=== PATIENT | female | born 1995 | race American Indian/Alaskan Native ===

== ENCOUNTER 2017-04-02 19:58 | Emergency (ER) | payer MEDICAID ==
[2017-04-02 20:27] VITALS: BP 118/69
[2017-04-02 21:00] LABS: Hematocrit 33.4 % (30.3-42.9); Mean Corpuscular HGB Conc 33 % (30-34); Mean Corpuscular Hemoglobin 29 pg (28-32); Mean Corpuscular Volume 87 fl (79-97); Platelet Count 241 K/mm3 (140-440); Red Blood Count 3.85 M/mm3 (3.65-5.03); Red Cell Distribution Width 14.2 % (13.2-15.2); White Blood Count 13.9 K/mm3 (4.5-11.0)
[2017-04-02 21:08] LABS: Anion Gap 18 mmol/L; Blood Urea Nitrogen 6 mg/dL (7-17); Calcium 9.1 mg/dL (8.4-10.2); Carbon Dioxide 23 mmol/L (22-30); Chloride 100.9 mmol/L (98-107); Glucose 76 mg/dL (65-100); Potassium 3.9 mmol/L (3.6-5.0); Sodium 138 mmol/L (137-145)
[2017-04-02 21:22] LABS: Bilirubin,Urine NEG (Negative); Blood,Urine NEG (Negative); Ketones,Urine NEG (Negative); Leukocyte Esterase,Urine TR (Negative); Mucus,Urine FEW /HPF; Nitrite,Urine NEG (Negative); Protein,Urine <15 mg/dL mg/dL (Negative); Urobilinogen,Urine < 2.0 mg/dL (<2.0); WBC,Urine < 1.0 /HPF (0.0-6.0)
--- NOTE | 2017-04-02 21:30 | Ultrasound Report ---
FINAL REPORT EXAM: US OB \T\gt; = 14 WEEKS FETUS HISTORY: 19 WK PREG/CRAMPING/NO MOVEMENT OF FETUS IN 4DAY TECHNIQUE: Real-time sonography was performed of the gravid uterus and images are submitted for interpretation. PRIORS: None. FINDINGS: There is a single fetus in the uterus in a cephalic presentation. Detailed anatomic survey was not performed. The placenta is anterior and the os is clear. There is a normal amount of amniotic fluid. The cervix is long and closed measuring 3.7 cm. The heart is beating at a rate of 161 beats per minute. Biometric measurements give an estimated gestational age of 18 weeks 6 days. The maternal adnexa were scanned. There is no free pelvic fluid. The ovaries were not seen. IMPRESSION: Single, live intrauterine gestation, estimated gestational age 18 weeks 6 days for an estimated date of confinement of 08/28/2017.
--- NOTE | 2017-04-04 13:20 | ED Elopement Review ---
ED Pt Elopement review - Results review Lab results: Laboratory Tests 04/02/17 04/02/17 04/02/17 20:33 20:33 20:33 WBC 13.9 H RBC 3.85 Hgb 11.0 Hct 33.4 MCV 87 MCH 29 MCHC 33 RDW 14.2 Plt Count 241 Sodium 138 Potassium 3.9 Chloride 100.9 Carbon Dioxide 23 Anion Gap 18 BUN 6 L Creatinine 0.4 L Estimated GFR > 60 BUN/Creatinine Ratio 15.00 Glucose 76 Calcium 9.1 HCG, Quant 40103 H Urine Color Urine Turbidity Urine pH Ur Specific [place] Urine Protein Urine Glucose (UA) Urine Ketones Urine Blood Urine Nitrite Urine Bilirubin Urine Urobilinogen Ur Leukocyte Esterase Urine WBC (Auto) Urine RBC (Auto) U Epithel Cells (Auto) Urine Mucus Blood Type 04/02/17 04/02/17 21:09 Unknown WBC RBC Hgb Hct MCV MCH MCHC RDW Plt Count Sodium Potassium Chloride Carbon Dioxide Anion Gap BUN Creatinine Estimated GFR BUN/Creatinine Ratio Glucose Calcium HCG, Quant Urine Color Yellow Urine Turbidity Clear Urine pH 6.0 Ur Specific [place] 1.020 Urine Protein <15 mg/dl Urine Glucose (UA) Neg Urine Ketones Neg Urine Blood Neg Urine Nitrite Neg Urine Bilirubin Neg Urine Urobilinogen < 2.0 Ur Leukocyte Esterase Tr Urine WBC (Auto) < 1.0 Urine RBC (Auto) 4.0 U Epithel Cells (Auto) 7.0 Urine Mucus Few Blood Type O POSITIVE - Call Back decision Pt Call Back Decision: No action required
== END 2017-04-02 23:50 | disposition left against medical advice (07) ==
LOC: ED 19:58
DX: O26.892 Other specified pregnancy related conditions, second trimester (principal); Z53.21 Procedure and treatment not carried out due to patient leaving prior to being seen by health care provider; Z3A.19 19 weeks gestation of pregnancy
CPT/HCPCS: 36415; 76805; 80048; 81001; 84702; 85027; 86900; 86901

== ENCOUNTER 2021-01-16 13:41 | Emergency (ER) | payer SELFPAY ==
[2021-01-16 14:03] VITALS: BP 106/55
== END 2021-01-16 16:00 | disposition left against medical advice (07) ==
LOC: ED 13:41
DX: R10.2 Pelvic and perineal pain (principal); Z53.21 Procedure and treatment not carried out due to patient leaving prior to being seen by health care provider